=== PATIENT | female | born 1975 | race African-American/Black ===

== ENCOUNTER → 2020-08-24 | Outpatient (CLI) | payer OTHER ==
[2020-08-24 09:49] LABS: ALBUMIN 3.5 g/dL (3.4-5.0); ANION GAP 11 mmol/L (7-16); BUN 9 mg/dL (7-18); CALCIUM 9.2 mg/dL (8.5-10.1); CHLORIDE 99 mmol/L (98-107); CHOLESTEROL 155 mg/dL (<200); CO2 27 mmol/L (21-32); CREATININE 0.8 mg/dL (0.6-1.0); GLUCOSE 159 mg/dL (74-106); HDL CHOLESTEROL 43 mg/dL (>40); LDL CHOLESTEROL 88 mg/dL (<100); POTASSIUM 3.9 mmol/L (3.5-5.1); SGOT 12 U/L (15-37); SGPT 24 U/L (30-65); SODIUM 137 mmol/L (136-145); TC:HDL 3.6 Ratio (Not establshd); TOTAL BILIRUBIN 0.4 mg/dL (0.2-1.0); TOTAL PROTEIN 7.3 g/dL (6.4-8.2); TRIGLYCERIDE 120 mg/dL (<150); VLDL 24 mg/dL (<40)
[2020-08-24 22:06] LABS: CREATININE (ALB/CR) 168.8 mg/dL (Not Estab.); MICROALBUMIN-RND URINE 51.2 ug/mL (Not Estab.)
== END ==
LOC: LAB 08:33
PROVIDERS: ATTEND Internal Medicine
DX: E11.65 Type 2 diabetes mellitus with hyperglycemia (principal)

== ENCOUNTER → 2021-07-07 | Outpatient (CLI) | payer OTHER ==
[2021-07-07 10:01] LABS: ALBUMIN 3.3 g/dL (3.4-5.0); ANION GAP 8 mmol/L (7-16); BUN 10 mg/dL (7-18); CALCIUM 8.9 mg/dL (8.5-10.1); CHLORIDE 102 mmol/L (98-107); CHOLESTEROL 132 mg/dL (<200); CO2 27 mmol/L (21-32); CREATININE 0.7 mg/dL (0.6-1.0); GLUCOSE 172 mg/dL (74-106); HDL CHOLESTEROL 42 mg/dL (>40); LDL CHOLESTEROL 78 mg/dL (<100); POTASSIUM 4.5 mmol/L (3.5-5.1); SGOT 14 U/L (15-37); SGPT 20 U/L (30-65); SODIUM 137 mmol/L (136-145); TC:HDL 3.1 Ratio (Not establshd); TOTAL BILIRUBIN 0.3 mg/dL (0.2-1.0); TOTAL PROTEIN 7.1 g/dL (6.4-8.2); TRIGLYCERIDE 63 mg/dL (<150); VLDL 13 mg/dL (<40)
[2021-07-08 01:06] LABS: GLYCOHEMOGLOBIN (HGB A1C) 11.3 % (4.8-5.6)
== END ==
LOC: LAB 07:41
PROVIDERS: ATTEND Internal Medicine
DX: E11.65 Type 2 diabetes mellitus with hyperglycemia (principal)